=== PATIENT | male | born 2000 | race Caucasian/White ===

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

== ENCOUNTER 2022-02-23 09:28 | Outpatient (CLI) | payer OTHER, SELFPAY ==
[2022-02-23 13:57] LABS: Albumin* 4.5 g/dL (3.3-5.0); Chloride* 107 mmol/L (96-114); Potassium* 4.4 mmol/L (3.6-5.1); Sodium* 141 mmol/L (135-149)
[2022-02-23 13:59] LABS: Creatinine* 0.9 mg/dL (0.6-1.2); Estimated Glomerular Filt Rate 126 ml/min
[2022-02-23 14:00] LABS: Alanine Aminotransferase* 26 U/L (4-50); Alkaline Phosphatase* 80 U/L (65-260); Aspartate Amino Transferase* 31 U/L (12-35); Bilirubin Total* 0.8 mg/dL (0.1-1.5); Blood Urea Nitrogen* 12 mg/dL (5-24); Calcium* 9.5 mg/dL (8.7-10.8); Carbon Dioxide* 25 mmol/L (20-32); Glucose* 90 mg/dL (60-115); Total Protein* 7.3 g/dL (6.0-8.3)
[2022-02-23 15:17] LABS: Cholesterol* 138 mg/dL (90-199); LDL Cholesterol Calculated 83 mg/dL (<100)
[2022-02-23 15:21] LABS: HDL Cholesterol* 44 mg/dL (>=40); Triglycerides* 56 mg/dL (40-149)
== END 2022-02-23 09:29 | disposition home or self-care (01) ==
PROVIDERS: PCP Family Medicine; Visit Provider Family Medicine
DX: Z00.00 Encounter for general adult medical examination without abnormal findings (principal); Z13.6 Encounter for screening for cardiovascular disorders
CPT/HCPCS: 80053; 80061